=== PATIENT | female | born 1995 | race Caucasian/White ===

== ENCOUNTER 2020-12-22 14:19 | Emergency (ER) | payer OTHER ==
[2020-12-22] MEDS ORDERED: CYCLOBENZAPRINE10 MG PO (17:08)
== END 2020-12-22 17:19 | disposition home or self-care (01) ==
LOC: ER1 14:19
DX: S16.1XXA Strain of muscle, fascia and tendon at neck level, initial encounter (principal); S60.212A Contusion of left wrist, initial encounter; V49.40XA Driver injured in collision with unspecified motor vehicles in traffic accident, initial encounter; Y92.410 Unspecified street and highway as the place of occurrence of the external cause
CPT/HCPCS: 72125; 73110; 99284